=== PATIENT | female | born 1995 | race Caucasian/White ===

== ENCOUNTER 2017-01-13 11:33 | Day surgery (SDC) | payer OTHER ==
[2017-01-06 15:34] VITALS: BMI 23.8
[~2017-01-13 11:33] MED LIST: DEXAMETHASONE SOD PHOSPHATE 10 MG/ML 1 ML VIAL IV ONE; HYDROmorphone 1 MG/ML 1 ML SYRINGE IVP PRN; LACTATED RINGERS 1,000 ML IV SCH; MIDAZOLAM 2 MG/2 ML VIAL IV PRN; ONDANSETRON 4 MG/2 ML VIAL IVP ONE; Pre Op ABX Message 1 EACH MISC MISCELLANE ONE
[2017-01-13] MEDS ORDERED: LIDOCAINE 1% 20 ML VIAL (10MG/ML) FOR IV START INTRADERMA ONE (11:59)
[2017-01-13] MEDS ORDERED: ceFAZolin 2 GM in SODIUM CHLORIDE 0.9% 100 ML IVPB ONE (12:27)
--- NOTE | 2017-01-13 12:28 | P.GSHP ---
History of Present Illness H&P Date: 01/13/17 CHIEF COMPLAINT: Rectal bleeding HISTORY OF PRESENT ILLNESS: The patient is a 21-year-old female who presents with rectal bleeding and hemorrhoids. Lower endoscopy was offered for further evaluation and management including hemorrhoidectomy. PAST MEDICAL HISTORY: Please see list. PAST SURGICAL HISTORY: Please see list. MEDICATIONS: Please see list. ALLERGIES: Please see list. SOCIAL HISTORY: No illicit drug use FAMILY HISTORY: No reports of Crohn disease or ulcerative colitis. REVIEW OF ORGAN SYSTEMS: CONSTITUTIONAL: No reports of fevers or chills. PHYSICAL EXAM: VITAL SIGNS: Stable GENERAL: Well-developed pleasant in no acute distress. HEENT: No scleral icterus. Extraocular movements grossly intact. Moist buccal mucosa. NECK: Supple without lymphadenopathy. CHEST: Unlabored respirations. Equal bilateral excursions. CARDIOVASCULAR: Regular rate and rhythm. Distal 2+ pulses. ABDOMEN: Soft, nontender, nondistended. MUSCULOSKELETAL: No clubbing, cyanosis, or edema. ASSESSMENT: 1. Rectal bleeding. 2. Hemorrhoids PLAN: 1. Recommend proceeding with a lower endoscopy and hemorrhoidectomy. Past Medical History Additional Past Medical History / Comment(s): hemorrhoids, constipation, blood in stool, History of Any Multi-Drug Resistant Organisms: None Reported Past Surgical History: Cholecystectomy Additional Past Surgical History / Comment(s): wisdom teeth Past Anesthesia/Blood Transfusion Reactions: Motion Sickness Smoking Status: Never smoker - Past Family History Mother Family Medical History: No Reported History Medications and Allergies Home Medications Medication Instructions Recorded Confirmed Type Norgestimate-Ethinyl Estradiol 1 tab PO 2200 01/06/17 01/13/17 History [Sprintec 28 Day Tablet] Allergies Allergy/AdvReac Type Severity Reaction Status Date / Time gluten Allergy Unknown Verified 01/13/17 11:48 Surgical - Exam Vital Signs Temp Pulse Resp BP Pulse Ox 97.8 F 105 H 16 131/75 100 01/13/17 11:52 01/13/17 11:52 01/13/17 11:52 01/13/17 11:52 01/13/17 11:52
[2017-01-13] MEDS ORDERED: SUCCINYLCHOLINE CHLORIDE 100 MG/5 ML SYR IV ONE (13:28)
[2017-01-13] MEDS ORDERED: MIDAZOLAM 2 MG/2 ML VIAL ONE (13:28)
[2017-01-13] MEDS ORDERED: fentaNYL (PF) 50 MCG/ML 2 ML AMP ONE (13:28)
[2017-01-13] MEDS ORDERED: PROPOFOL 10 MG/ML 20 ML VIAL IV ONE (13:28)
[2017-01-13] MEDS: BUPIVACAINE LIPOSOME/PF 1.3% 20 ML, SODIUM CHLORIDE 0.9% 10 ML MISCELLANE ONE ×4 (13:40→14:14)
--- NOTE | 2017-01-13 14:05 | P.PCN ---
Date of Procedure: 01/13/17 Preoperative Diagnosis: Postoperative Diagnosis: Procedure(s) Performed: Implants: Indications for Procedure: Operative Findings: Description of Procedure: PREOPERATIVE DIAGNOSIS: Rectal bleeding. Chronic constipation. POSTOPERATIVE DIAGNOSIS: Rectal bleeding. Chronic constipation. OPERATION: Colonoscopy to the ileocecal valve and appendiceal orifice. SURGEON: Maame Arenas MD. ANESTHESIA: MAC. INDICATIONS: The patient is a 21-year-old female who presents with abdominal pain including rectal bleeding. Benefits and risks were described and informed consent was obtained. DESCRIPTION OF PROCEDURE: The patient had undergone Gatorade, MiraLAX and Dulcolax prep. She had been brought into the operating room and laid in the left lateral decubitus position. After adequate intravenous sedation, the rectum was examined with 2% lidocaine jelly. External hemorrhoids were encountered. The rectal tone was within normal limits. No lesions were palpated in the rectal vault. An Olympus colonoscope was advanced until the ileocecal valve and appendiceal orifice were clearly viewed. The prep was excellent with clear visualization of the mucosal folds. The scope was removed with visualization of each mucosal fold. No scattered diverticulosis was encountered. No colonic polyps were found. No evidence of focal colitis was found. Retroflexion of the scope demonstrated grade 2 internal hemorrhoids without active bleeding or inflammation. The colon was desufflated. The patient had tolerated the procedure well. Withdrawal time was over 6 minutes. FINDINGS: Internal hemorrhoids, grade 2 External prolapsed hemorrhoids grade 1. No arteriovenous malformations. No adenomatous polyps. No focal colitis. RECOMMENDATIONS: Lower endoscopy as needed.
[2017-01-13] MEDS ORDERED: LACTATED RINGERS 1,000 ML IV ONE (14:17)
[2017-01-13] MEDS ORDERED: HYDROcodone/APAP 5-325MG 1 EACH TAB PO PRN (14:24)
[2017-01-13] MEDS ORDERED: NALOXONE 0.4 MG/ML 1 ML VIAL IV PRN (14:24)
--- NOTE | 2017-01-13 14:24 | P.OP ---
Date of Procedure: 01/13/17 Preoperative Diagnosis: Postoperative Diagnosis: Procedure(s) Performed: Implants: Indications for Procedure: Operative Findings: Description of Procedure: SURGEON: TINO ALVAREZ MD MEDICAL SUPPORT ASSISTANT: NONE. PREOPERATIVE DIAGNOSES: 1. History of complicated external hemorrhoids, grade 2. 2. History of rectal bleeding. POSTOPERATIVE DIAGNOSES: 1. History of complicated external hemorrhoids, grade 2. 2. History of rectal bleeding. OPERATION: 1. Excision of external hemorrhoid x 1 using LigaSure. 2. Intraoperative colonoscopy (please see separate operative report) ANESTHESIA: MAC with Exparel mixture. ESTIMATED BLOOD LOSS: 1 mL. PATHOLOGY: 1. External hemorrhoidal complex x 1. FINDINGS: 1. Grade 2 external hemorrhoidal cushion 1 excised. 2. No anal stricture upon excision of hemorrhoidal complexes. INDICATIONS: The patient is a 21-year-old female who presents with rectal bleeding including complicated internal/external hemorrhoids. She completed a colonoscopy. Surgical intervention was described for hemorrhoidectomy. Benefits and risks of the procedure, including bleeding, infection, incontinence, recurrent pain and recurrence of the hemorrhoids were discussed in detail. Informed consent was obtained. DESCRIPTION: Patient was brought to the operating room. After spinal anesthetic and IV sedation, she was then repositioned the prone jackknife position. Next, the perineum and buttocks was spread apart using Mastisol. The perineum was then prepped and draped in standard sterile fashion using Betadine. Preoperative medication was confirmed. Prior to incision, a timeout protocol was confirmed with surgical team. Initially 2 fingers was easily inserted for dilation of the anus. A perineal block using Exparel was placed. Grade 2 external hemorrhoid was found along the posterior lateral cushion. Next, using a Hill-Long anoscope, the hemorrhoidal cushion was addressed using a hand-held LigaSure after elevating the hemorrhoidal complex using forceps. At the end of the case, digital evaluation were performed without any features of the anal stricture or stenosis. Hemostasis was checked. Several 4 x 4 gauze and mesh underwear was placed. At the end of the procedure, needle, sponge, and counts had been verified correct by the nursing surgical services director. The patient then had tolerated the procedure well. Intraoperative findings including postoperative care instructions were discussed.
[2017-01-13 14:44] VITALS: TEMP 97.4
[2017-01-13] MEDS ORDERED: KETOROLAC 30 MG/ML 1 ML VIAL IVP ONE (15:11)
[2017-01-13 16:11] VITALS: BP 106/56; PULSE 84; RESP 16
[2017-01-13] MEDS ORDERED: NORGESTIMATE-ETHINYL ESTRADIOL 1 EACH TABLET PO SCH (22:00)
== END 2017-01-13 16:31 | disposition home or self-care (01) ==
LOC: OR 11:33
PROVIDERS: ATTEND Surgery Plastic and Reconstructive Surgery
DX: K64.0 First degree hemorrhoids (principal); K64.1 Second degree hemorrhoids; K62.5 Hemorrhage of anus and rectum; K59.09 Other constipation; Z79.3 Long term (current) use of hormonal contraceptives; Z91.02 Food additives allergy status
CPT/HCPCS: 81025; 88304; 45380; 46999; J2250; J1100; J0690; J2405; J3010; J1885; J0330; C9290; J2704